=== PATIENT | male | born 1995 ===

== ENCOUNTER 2019-04-18 19:30 | Outpatient (CLI) | payer OTHER | END 2019-04-18 19:31 | disposition home or self-care (01) | LOC: SLEEPLAB 19:30 | PROVIDERS: ATTEND Physician Assistant | DX: G47.9 Sleep disorder, unspecified (principal); R53.83 Other fatigue; R51 Headache; R06.83 Snoring; G47.33 Obstructive sleep apnea (adult) (pediatric) | CPT/HCPCS: 95810 ==